=== PATIENT | male | born 1980 | race Caucasian/White ===

== ENCOUNTER 2022-04-14 10:29 | Emergency (ER) | payer OTHER | END 2022-04-14 12:45 | disposition home or self-care (01) | LOC: ER1 10:29 | DX: S92.411A Displaced fracture of proximal phalanx of right great toe, initial encounter for closed fracture (principal); I10 Essential (primary) hypertension; F17.200 Nicotine dependence, unspecified, uncomplicated; W22.8XXA Striking against or struck by other objects, initial encounter; Y92.009 Unspecified place in unspecified non-institutional (private) residence as the place of occurrence of the external cause | CPT/HCPCS: 73630; 99283 ==

== ENCOUNTER 2022-06-17 18:59 | Emergency (ER) | payer OTHER ==
[2022-06-17 20:28] LABS: HEMOGLOBIN 14.3 gm/dl (14.0-17.5); RED BLOOD COUNT 4.58 M/UL (4.20-5.50); WHITE BLOOD COUNT 10.5 K/UL (4.5-11.0)
[2022-06-17 20:52] LABS: BUN/CREATININE RATIO 11 (0-10)
== END 2022-06-17 21:30 | disposition home or self-care (01) ==
LOC: ER1 18:59
PROVIDERS: Emergency Medicine
DX: S39.012A Strain of muscle, fascia and tendon of lower back, initial encounter (principal); R05.8 Other specified cough; I10 Essential (primary) hypertension; F17.200 Nicotine dependence, unspecified, uncomplicated; X58.XXXA Exposure to other specified factors, initial encounter
CPT/HCPCS: 80053; 81001; 82550; 83690; 83874; 85025; 99283

== ENCOUNTER 2022-06-27 07:23 | Emergency (ER) | payer OTHER ==
[2022-06-27 08:20] LABS: HEMOGLOBIN 16.4 gm/dl (14.0-17.5); RED BLOOD COUNT 5.23 M/UL (4.20-5.50); WHITE BLOOD COUNT 7.7 K/UL (4.5-11.0)
[2022-06-27 08:38] LABS: BUN/CREATININE RATIO 6 (0-10)
== END 2022-06-27 16:53 | disposition home or self-care (01) ==
LOC: ER1 07:23
PROVIDERS: Physician Assistant
DX: K80.40 Calculus of bile duct with cholecystitis, unspecified, without obstruction (principal); I10 Essential (primary) hypertension; F17.200 Nicotine dependence, unspecified, uncomplicated
CPT/HCPCS: 76705; 80053; 80307; 81001; 82550; 83874; 85025; 85610; 96374; 96375; 99285; J1885; J2405; Q9967